=== PATIENT | female | born 1980 | race Caucasian/White ===

== ENCOUNTER 2024-07-25 11:40 | Emergency (ER) | payer OTHER ==
[2024-07-25] MEDS ORDERED: ACETAMINOPHEN 325 MG TABLET (FP) ONE (12:21)
[2024-07-25] MEDS ORDERED: LIDOCAINE 5% TOPICAL PATCH ONE (12:22)
[2024-07-25 12:36] VITALS: BP 143/104; PULSE 128; RESP 18; TEMP 98.2; BMI 32.9
[2024-07-25] MEDS: LIDOCAINE 5% TOPICAL PATCH TP ONE (12:39)
[2024-07-25] MEDS: ACETAMINOPHEN 325 MG TABLET (FP) PO ONE (12:39)
[2024-07-25] MEDS ORDERED: LIDOCAINE PATCH REMOVAL MC SCH (22:00)
== END 2024-07-25 13:33 | disposition home or self-care (01) ==
LOC: FER 11:40
DX: S20.212A Contusion of left front wall of thorax, initial encounter (principal); W19.XXXA Unspecified fall, initial encounter
CPT/HCPCS: 71046-TC-FY; 71101-TC-LT-FY; 99283-25